=== PATIENT | male | born 1960 | race African-American/Black ===

== ENCOUNTER 2017-01-19 14:40 | Emergency (ER) | payer BC, OTHER ==
[2017-01-19] MEDS ORDERED: Sodium Chloride 0.9% 2.5 ML Syringe FLUSH PRN (14:50)
[2017-01-19] MEDS ORDERED: Sodium Chloride 0.9% 10 ML Syringe FLUSH PRN (14:50)
[2017-01-19] MEDS ORDERED: Aspirin 81 MG Tab.Chew PO ONE (14:51)
--- NOTE | 2017-01-19 14:53 | EDM.PDOC ---
ED HPI GENERAL MEDICAL PROBLEM - General Stated Complaint: CHEST PAIN Time Seen by Provider: 01/19/17 14:48 - History of Present Illness INITIAL COMMENTS - FREE TEXT/NARRATIVE: HISTORY AND PHYSICAL: History of present illness: Patient is 56-year-old black male with history of hypertension but denies history of prior SC stroke patient is nonsmoker and presents with a concern of right-sided chest pain was sharp and lasts approximately 10 minutes he denies associated shortness of breath diaphoresis nausea vomiting palpitations no fever chills no trauma no other complaints Review of systems: As per history of present illness and below otherwise all systems reviewed and negative. Past medical history: As per history of present illness and as reviewed below otherwise noncontributory. Surgical history: As per history of present illness and as reviewed below otherwise noncontributory. Social history: No reported history of drug or alcohol abuse. Family history: As per history of present illness and as reviewed below otherwise noncontributory. Physical exam: HEENT: Atraumatic, normocephalic, pupils reactive, negative for conjunctival pallor or scleral icterus, mucous membranes moist, throat clear, neck supple, nontender, trachea midline. Lungs: Clear to auscultation, breath sounds equal bilaterally, chest nontender. Heart: S1S2, regular, negative for clicks, rubs, or JVD. Abdomen: Soft, nondistended, nontender. Negative for masses or hepatosplenomegaly. Negative for costovertebral tenderness. Pelvis: Stable nontender. Genitourinary: Deferred. Rectal: Deferred. Extremities: Atraumatic, negative for cords or calf pain. Neurovascular unremarkable. Neuro: Awake, alert, oriented. Cranial nerves II through XII unremarkable. Cerebellum unremarkable. Motor and sensory unremarkable throughout. Exam nonfocal. Diagnostics: CBC CMP PT/INR troponin d-dimer chest x-ray EKG Therapeutics: IV O2 monitor aspirin 324 mg by mouth Impression: #1 right-sided chest pain Definitive disposition and diagnosis as appropriate pending reevaluation and review of above. - Related Data Allergies Allergy/AdvReac Type Severity Reaction Status Date / Time No Known Allergies Allergy Verified 09/24/13 15:51 Home Meds: Home Meds Albuterol [Ventolin HFA] 2 puff INH BID 09/24/13 [History] Budesonide/Formoterol [Symbicort 160-4.5 MCG] 1 puff INH BID 09/24/13 [History] Doxylamine Succinate [Sleep Aid] 25 mg PO 09/24/13 [History] Naproxen Sodium [Aleve] 220 mg PO 09/24/13 [History] Sulfamethoxazole/Trimethoprim [Bactrim Ds Tablet] 1 each PO 09/24/13 [History] risperiDONE 1 mg PO 09/24/13 [History] ED ROS GENERAL - Review of Systems Review Of Systems: ROS reveals no pertinent complaints other than HPI. ED EXAM, GENERAL - Physical Exam Exam: See Below (See dictation) Course - Vital Signs Last Recorded V/S: Last Vital Signs Temp 36.2 C 01/19/17 14:57 Pulse 76 01/19/17 16:06 Resp 16 01/19/17 16:06 BP 114/86 01/19/17 16:06 Pulse Ox 96 01/19/17 16:06 - Orders/Labs/Meds Orders: Active Orders 24 hr Category Date Time Status Cardiac Monitoring [RC] . DIRECTED Care 01/19/17 14:50 Active EKG Documentation Completion [RC] STAT Care 01/19/17 14:50 Active Oxygen Therapy, ED [RC] ASDIRECTED Care 01/19/17 14:50 Active Pulse Oximetry [RC] ASDIRECTED Care 01/19/17 14:50 Active Labs: Laboratory Tests 01/19/17 01/19/17 01/19/17 Range/Units 15:00 15:00 15:00 WBC 7.31 (4.0-11.0) K/uL RBC 4.90 (4.50-5.90) M/uL Hgb 14.3 (13.0-17.0) g/dL Hct 42.0 (38.0-50.0) % MCV 85.7 (80.0-98.0) fL MCH 29.2 (27.0-32.0) pg MCHC 34.0 (31.0-37.0) g/dL RDW Std Deviation 41.6 (28.0-62.0) fl RDW Coeff of Louis 13 (11.0-15.0) % Plt Count 217 (150-400) K/uL MPV 9.30 (7.40-12.00) fL Neut % (Auto) 70.2 (48.0-80.0) % Lymph % (Auto) 23.5 (16.0-40.0) % [place] % (Auto) 5.2 (0.0-15.0) % Eos % (Auto) 0.7 (0.0-7.0) % Baso % (Auto) 0.4 (0.0-1.5) % Neut # (Auto) 5.1 (1.4-5.7) K/uL Lymph # (Auto) 1.7 (0.6-2.4) K/uL [place] # (Auto) 0.4 (0.0-0.8) K/uL Eos # (Auto) 0.1 (0.0-0.7) K/uL Baso # (Auto) 0.0 (0.0-0.1) K/uL Nucleated RBC % 0.0 /100WBC Nucleated RBCs # 0 K/uL INR 1.08 (0.86-1.11) D-Dimer, Quantitative 0.39 (0.0-0.52) mg/LFEU Sodium 137 (136-146) mmol/L Potassium 4.0 (3.5-5.1) mmol/L Chloride 104 (98-110) mmol/L Carbon Dioxide 24 (21-31) mmol/L BUN 14 (6.0-23.0) mg/dL Creatinine 1.2 (0.6-1.5) mg/dL Est Cr Clr Drug Dosing TNP Estimated GFR (MDRD) > 60.0 ml/min Glucose 135 H (60-110) mg/dL Calcium 9.7 (8.8-10.8) mg/dL Total Bilirubin 0.8 (0.1-1.5) mg/dL AST 18 (5-40) IU/L ALT 22 (8-54) IU/L Alkaline Phosphatase 81 (40-150) Troponin I (0.0-0.29) NG/ML Total Protein 7.1 (6.0-8.0) g/dL Albumin 4.3 (3.5-5.0) g/dL Globulin 2.8 (2.0-3.5) g/dL Albumin/Globulin Ratio 1.5 (1.3-2.8) 01/19/17 Range/Units 15:00 WBC (4.0-11.0) K/uL RBC (4.50-5.90) M/uL Hgb (13.0-17.0) g/dL Hct (38.0-50.0) % MCV (80.0-98.0) fL MCH (27.0-32.0) pg MCHC (31.0-37.0) g/dL RDW Std Deviation (28.0-62.0) fl RDW Coeff of Louis (11.0-15.0) % Plt Count (150-400) K/uL MPV (7.40-12.00) fL Neut % (Auto) (48.0-80.0) % Lymph % (Auto) (16.0-40.0) % [place] % (Auto) (0.0-15.0) % Eos % (Auto) (0.0-7.0) % Baso % (Auto) (0.0-1.5) % Neut # (Auto) (1.4-5.7) K/uL Lymph # (Auto) (0.6-2.4) K/uL [place] # (Auto) (0.0-0.8) K/uL Eos # (Auto) (0.0-0.7) K/uL Baso # (Auto) (0.0-0.1) K/uL Nucleated RBC % /100WBC Nucleated RBCs # K/uL INR (0.86-1.11) D-Dimer, Quantitative (0.0-0.52) mg/LFEU Sodium (136-146) mmol/L Potassium (3.5-5.1) mmol/L Chloride (98-110) mmol/L Carbon Dioxide (21-31) mmol/L BUN (6.0-23.0) mg/dL Creatinine (0.6-1.5) mg/dL Est Cr Clr Drug Dosing Estimated GFR (MDRD) ml/min Glucose (60-110) mg/dL Calcium (8.8-10.8) mg/dL Total Bilirubin (0.1-1.5) mg/dL AST (5-40) IU/L ALT (8-54) IU/L Alkaline Phosphatase (40-150) Troponin I < 0.10 (0.0-0.29) NG/ML Total Protein (6.0-8.0) g/dL Albumin (3.5-5.0) g/dL Globulin (2.0-3.5) g/dL Albumin/Globulin Ratio (1.3-2.8) Meds: Medications Discontinued Medications Generic Name Dose Route Start Last Admin Trade Name Ajq PRN Reason Stop Dose Admin Aspirin 324 mg 01/19/17 14:51 01/19/17 15:16 Aspirin PO 01/19/17 14:52 243 mg ONETIME ONE Administration Sodium Chloride 10 ml 01/19/17 14:50 Saline Flush FLUSH ASDIRECTED PRN Keep Vein Open Sodium Chloride 2.5 ml 01/19/17 14:50 Saline Flush FLUSH ASDIRECTED PRN Keep Vein Open Departure - Departure Time of Disposition: 16:13 Disposition: Home, Self-Care 01 Condition: Good Clinical Impression: Atypical chest pain - Discharge Information Additional Instructions: The following information is given to patients seen in the emergency department who are being discharged to home. This information is to outline your options for follow-up care. We provide all patients seen in our emergency department with a follow-up referral. The need for follow-up, as well as the timing and circumstances, are variable depending upon the specifics of your emergency department visit. If you don't have a primary care physician on staff, we will provide you with a referral. We always advise you to contact your personal physician following an emergency department visit to inform them of the circumstance of the visit and for follow-up with them and/or the need for any referrals to a consulting specialist. The emergency department will also refer you to a specialist when appropriate. This referral assures that you have the opportunity for followup care with a specialist. All of these measure are taken in an effort to provide you with optimal care, which includes your followup. Under all circumstances we always encourage you to contact your private physician who remains a resource for coordinating your care. When calling for followup care, please make the office aware that this follow-up is from your recent emergency room visit. If for any reason you are refused follow-up, please contact the [facility] emergency department at and asked to speak to the emergency department charge nurse. [facility] [address] [place] [id number] Follow-up primary medical doctor in our clinic above as discussed return as needed as discussed - My Orders Last 24 Hours: My Active Orders 01/19/17 14:50 Cardiac Monitoring [RC] . DIRECTED EKG Documentation Completion [RC] STAT Oxygen Therapy, ED [RC] ASDIRECTED Pulse Oximetry [RC] ASDIRECTED - Assessment/Plan Last 24 Hours: My Active Orders 01/19/17 14:50 Cardiac Monitoring [RC] . DIRECTED EKG Documentation Completion [RC] STAT Oxygen Therapy, ED [RC] ASDIRECTED Pulse Oximetry [RC] ASDIRECTED
--- NOTE | 2017-01-19 15:24 | CR ---
EXAMINATION: Portable chest radiograph. HISTORY: Shortness of breath. FINDINGS: The trachea is midline. The cardiomediastinal silhouette is within normal limits. No pulmonary infil trates, effusions or pneumothorax. Osseous structures appear unremarkable. IMPRESSION: No acute cardiopulmonary process.
[2017-01-19 15:41] LABS: CHLORIDE,CL 104 mmol/L (98-110); SODIUM,NA 137 mmol/L (136-146)
== END 2017-01-19 16:28 | disposition home or self-care (01) ==
LOC: MW.ED 14:40
DX: R07.89 Other chest pain (principal)
CPT/HCPCS: 36415; 71010; 80053; 84484; 85025; 85379; 85610; 93005; 99285; A9270; 99283

== ENCOUNTER 2018-07-09 23:06 | Emergency (ER) | payer BC ==
--- NOTE | 2018-07-09 23:28 | EDM.PDOC ---
ED HPI GENERAL MEDICAL PROBLEM - General Chief Complaint: Abdominal Pain Stated Complaint: PT HAS STOMACH PAINS Time Seen by Provider: 07/09/18 23:19 - History of Present Illness INITIAL COMMENTS - FREE TEXT/NARRATIVE: HISTORY AND PHYSICAL: History of present illness: The patient is a 58-year-old male who has a history of Hodgkin's lymphoma for which he is being seen at the [facility] and is on chemotherapy and is slated to continue chemotherapy from September and presents with constipation and no bowel movement for 4 days. The patient says he has never had any abdominal surgical history and has no GI problems and normally does not go this long without a bowel movement. He says he has been eating normally and he has been eating a lot of food but he has had no nausea vomiting fever chills chest pain or shortness of breath. He's passing his urine without difficulty. The patient has tried [id number] preps such as milk of magnesia and mag citrate and other laxatives and says that nothing is working. He denies any specific abdominal pain. For the triage nurse the patient says that he has lower abdominal pain but he denied that to me. He has no flank pain. When asked specifically where the patient's lymphoma is mostly localized he says in his axillary areas and in his abdomen. Review of systems: As per history of present illness and below otherwise all systems reviewed and negative. Past medical history: As per history of present illness and as reviewed below otherwise noncontributory. Surgical history: As per history of present illness and as reviewed below otherwise noncontributory. Social history: No reported history of drug or alcohol abuse. Family history: As per history of present illness and as reviewed below otherwise noncontributory. Physical exam: General: Well-developed well-nourished man who is nontoxic and ambulated into the ED without distress. Vital signs are noted by me. HEENT: Atraumatic, normocephalic, negative for conjunctival pallor or scleral icterus, mucous membranes moist, throat clear, neck supple, nontender, trachea midline. Lungs: Clear to auscultation, breath sounds equal bilaterally, chest nontender. Heart: S1S2, regular rate and rhythm no overt murmurs Abdomen: Soft, nondistended, bowel sounds are slightly hypoactive and there is some mild tenderness on the right side of the abdomen in the middle without localization in the right upper or right lower quadrant, there is some diffuse lower abdominal tenderness on palpation but no rebound or guarding.. Negative for masses or hepatosplenomegaly. Negative for costovertebral tenderness. Pelvis: Stable nontender. Genitourinary: Deferred. Rectal: Deferred. Extremities: Atraumatic, negative for cords or calf pain. Neurovascular unremarkable. Neuro: Awake, alert, oriented. Cranial nerves II through XII unremarkable. Cerebellum unremarkable. Motor and sensory unremarkable throughout. Exam nonfocal. Diagnostics: CBC CMP UA abdominal x-rays Therapeutics: With the patient his x-ray findings as well as his WBC count which is elevated with a left shift. He says that after his chemotherapy they give him a patch which helps with his white cell count and that normally it would be elevated after his chemotherapy and he is not concerned. I told him that we have no recent labs to compare today's findings and his WBC count of 30.36 with a left shift is worrisome in light of his abdominal complaints. He does not have a fever and on my exam he only has minimal pain but never complained of pain. He is not having vomiting. I offered the patient a CAT scan to further delineate if there is something connecting his constipation with his WBC count and he is declining. He is aware of my concerns that his lymphoma was initially diagnosed with abdominal involvement and this can be worrisome with the complaints he has and the white cell count. He still declines the CAT scan. He said he would prefer to go see his provider in [place]. I will give him advice on trying to help evacuate the colon. I told him that an enema would probably not be useful at this time because on the x-rays there is not much stool in the rectal vault and he now tells me he did try an enema as well as home and to get some small output. I will advise [id number] meds that he can try such as MiraLAX with Colace and reasons to return to the ED Impression: Constipation with history of Hodgkin's lymphoma on chemotherapy Definitive disposition and diagnosis as appropriate pending reevaluation and review of above. lower abd Pain Score (Numeric/FACES): 6 - Related Data Allergies Allergy/AdvReac Type Severity Reaction Status Date / Time No Known Allergies Allergy Verified 07/09/18 23:20 Home Meds: Home Meds Albuterol [Ventolin HFA] 2 puff INH BID PRN 09/24/13 [History] Budesonide/Formoterol [Symbicort 160-4.5 MCG] 1 puff INH ASDIRECTED PRN [History] Lurasidone HCl [Latuda] 20 mg PO DAILY 04/17/18 [History] atorvaSTATin [Lipitor] 10 mg PO DAILY 04/17/18 [History] cloNIDine [Catapres] 0.1 mg PO DAILY 04/17/18 [History] traZODone HCl [Trazodone HCl] 100 mg PO ASDIRECTED 04/18/18 [History] Hydrocodone/Acetaminophen [Hydrocodon-Acetaminophen 5-325] 1 each PO Q6HR PRN # 15 tablet 04/19/18 [Rx] Past Medical History - Past Health History Medical/Surgical History: Denies Medical/Surgical History Cardiovascular History: Reports: High Cholesterol Respiratory History: Reports: Asthma Musculoskeletal History: Reports: Fracture Other Musculoskeletal History: hx fx rt leg Psychiatric History: Reports: Anxiety, Depression, Schizophrenia Oncologic (Cancer) History: Reports: Hodgkin's Lymphoma - Past Surgical History Head Surgeries/Procedures: Reports: None Musculoskeletal Surgical History: Reports: Other (See Below) Other Musculoskeletal Surgeries/Procedures:: ORIF rt. lower femur fx. Social & Family History - Family History Family Medical History: Noncontributory Other Dermatologic Family History: Lupus - Tobacco Use Smoking Status *Q: Never Smoker Second Hand Smoke Exposure: No - Caffeine Use Caffeine Use: Reports: Energy Drinks - Recreational Drug Use Recreational Drug Use: Yes Drug Use in Last 12 Months: No Recreational Drug Type: Reports: Marijuana/Hashish ED ROS GENERAL - Review of Systems Review Of Systems: ROS reveals no pertinent complaints other than HPI. ED EXAM, GENERAL - Physical Exam Exam: See Below (See dictation) Course - Vital Signs Last Recorded V/S: Last Vital Signs Temp 36.7 C 07/09/18 23:17 Pulse 101 H 07/09/18 23:17 Resp 16 07/09/18 23:17 BP 136/93 H 07/09/18 23:17 Pulse Ox 98 07/09/18 23:17 - Orders/Labs/Meds Labs: Laboratory Tests 07/09/18 07/09/18 07/09/18 Range/Units 23:30 23:41 23:41 WBC 30.36 H (4.0-11.0) K/uL RBC 4.44 L (4.50-5.90) M/uL Hgb 12.4 L (13.0-17.0) g/dL Hct 37.4 L (38.0-50.0) % MCV 84.2 (80.0-98.0) fL MCH 27.9 (27.0-32.0) pg MCHC 33.2 (31.0-37.0) g/dL RDW Std Deviation 66.3 H (28.0-62.0) fl RDW Coeff of Louis 22 H (11.0-15.0) % Plt Count 341 (150-400) K/uL MPV 8.70 (7.40-12.00) fL Add Manual Diff YES Neutrophils % (Manual) 78 (48.0-80.0) % Band Neutrophils % 8 % Lymphocytes % (Manual) 11 L (16.0-40.0) % Monocytes % (Manual) 2 (0.0-15.0) % Basophils % (Manual) 1 (0.0-1.5) % Nucleated RBC % 0.3 /100WBC Absolute Seg Neuts 23.7 H (1.4-5.7) Band Neutrophils # 2.4 Lymphocytes # (Manual) 3.3 H (0.6-2.4) Monocytes # (Manual) 0.6 (0.0-0.8) Basophils # (Manual) 0.3 H (0.0-0.1) Nucleated RBCs # 0 K/uL Sodium 137 (136-148) mmol/L Potassium 4.0 (3.5-5.1) mmol/L Chloride 99 (98-107) mmol/L Carbon Dioxide 29.4 (21.0-32.0) mmol/L BUN 12 (7.0-18.0) mg/dL Creatinine 1.3 (0.8-1.3) mg/dL Est Cr Clr Drug Dosing 57.26 mL/min Estimated GFR (MDRD) > 60.0 ml/min Glucose 110 H (74-106) mg/dL Calcium 9.5 (8.5-10.1) mg/dL Total Bilirubin 0.2 (0.2-1.0) mg/dL AST 17 (15-37) IU/L ALT 18 (14-63) IU/L Alkaline Phosphatase 150 H (46-116) U/L Total Protein 7.1 (6.4-8.2) g/dL Albumin 3.9 (3.4-5.0) g/dL Globulin 3.2 (2.6-4.0) g/dL Albumin/Globulin Ratio 1.2 (0.9-1.6) Urine Color YELLOW Urine Appearance CLEAR Urine pH 7.0 (5.0-8.0) Ur Specific Addis 1.020 (1.001-1.035) Urine Protein NEGATIVE (NEGATIVE) mg/dL Urine Glucose (UA) NEGATIVE (NEGATIVE) mg/dL Urine Ketones TRACE H (NEGATIVE) mg/dL Urine Occult Blood NEGATIVE (NEGATIVE) Urine Nitrite NEGATIVE (NEGATIVE) Urine Bilirubin NEGATIVE (NEGATIVE) Urine Urobilinogen 0.2 (<2.0) EU/dL Ur Leukocyte Esterase NEGATIVE (NEGATIVE) Departure - Departure Time of Disposition: 00:53 Disposition: Home, Self-Care 01 Condition: Good Clinical Impression: Constipation Qualifiers: Constipation type: unspecified constipation type Qualified Code(s): K59.00 - Constipation, unspecified Hodgkins lymphoma Qualifiers: Hodgkin lymphoma type: unspecified type Lymphoma site: unspecified region Qualified Code(s): C81.90 - Hodgkin lymphoma, unspecified, unspecified site - Discharge Information Referrals: PCP,None [Primary Care Provider] - Forms: ED Department Discharge Additional Instructions: The following information is given to patients seen in the emergency department who are being discharged to home. This information is to outline your options for follow-up care. We provide all patients seen in our emergency department with a follow-up referral. The need for follow-up, as well as the timing and circumstances, are variable depending upon the specifics of your emergency department visit. If you don't have a primary care physician on staff, we will provide you with a referral. We always advise you to contact your personal physician following an emergency department visit to inform them of the circumstance of the visit and for follow-up with them and/or the need for any referrals to a consulting specialist. The emergency department will also refer you to a specialist when appropriate. This referral assures that you have the opportunity for followup care with a specialist. All of these measure are taken in an effort to provide you with optimal care, which includes your followup. Under all circumstances we always encourage you to contact your private physician who remains a resource for coordinating your care. When calling for followup care, please make the office aware that this follow-up is from your recent emergency room visit. If for any reason you are refused follow-up, please contact the [facility] emergency department at and ask to speak to the emergency department charge nurse. [facility] Primary care- Internal Medicine and Family [address] [address] Please contact your provider and your oncologist first thing in the morning to discuss with them your constipation and today's test findings. Please continue to monitor your symptoms and return to ER as needed and as discussed and for further care as you choose going forward. For your constipation you can use over -the-counter MiraLAX 1 heaping tablespoon twice a day for 2-3 days and then 1 heaping teaspoon once a day. Also continue to take [id number] Colace twice a day to help keep the stool moving and push hydration.
[2018-07-10 00:03] LABS: CHLORIDE,CL 99 mmol/L (98-107); SODIUM,NA 137 mmol/L (136-148)
--- NOTE | 2018-07-10 00:52 | CR ---
Indication: Abdominal pain. Technique: AP supine and upright views of the abdomen and pelvis were obtained. Comparison: None Findings: The bowel gas pattern is nonobstructive. No free air is identified. No pathologic calcifications are seen. Impression: Nonobstructed bowel-gas pattern. No free air. Dictated by Marianela Wayne MD @ Jul 10 2018 12:49AM Signed by Dr. Marianela Wayne @ Jul 10 2018 12:50AM
== END 2018-07-10 01:02 | disposition home or self-care (01) ==
LOC: MW.ED 23:06
DX: K59.00 Constipation, unspecified (principal); C81.90 Hodgkin lymphoma, unspecified, unspecified site; E78.00 Pure hypercholesterolemia, unspecified; F41.9 Anxiety disorder, unspecified; F32.9 Major depressive disorder, single episode, unspecified; Z79.899 Other long term (current) drug therapy
CPT/HCPCS: 36415; 74019; 74019-26; 80053; 81003; 85025; 99283

== ENCOUNTER 2019-01-14 11:29 | Emergency (ER) | payer BC ==
[2019-01-14] MEDS ORDERED: methylPREDNISolone Sodium Succinate 125 MG/2 ML SDV IM ONE (12:03)
--- NOTE | 2019-01-14 12:03 | EDM.PDOC ---
ED HPI GENERAL MEDICAL PROBLEM - General Chief Complaint: Skin Complaint Stated Complaint: SORE THROAT Time Seen by Provider: 01/14/19 11:53 Source of Information: Reports: Patient History Limitations: Reports: No Limitations - History of Present Illness INITIAL COMMENTS - FREE TEXT/NARRATIVE: HISTORY AND PHYSICAL: History of present illness: Patient is a 58-year-old male presents to the ED with complaint of rash. He states the rash started 4 days ago and has progressively gotten worse. Rash is all over his body, states it is itchy. He reports his mouth feels swollen and mcmillan when he eats. states he had a fever the past couple of days around 101F. Past medical history significant for Hodgkin's lymphoma. Finished radiation therapy about 6 weeks ago. Denies nausea, vomiting, diarrhea, abdominal pain, headache, cough. No new medications other than restarting statin about 6 weeks ago. Patient has a follow up with his oncologist tomorrow ( 01/15/19). Review of systems: As per history of present illness and below otherwise all systems reviewed and negative. Past medical history: As per history of present illness and as reviewed below otherwise noncontributory. Surgical history: As per history of present illness and as reviewed below otherwise noncontributory. Social history: No reported history of drug or alcohol abuse. Family history: As per history of present illness and as reviewed below otherwise noncontributory. Physical exam: General: Patient sitting comfortably in no acute distress and nontoxic appearing HEENT: Multiple aphthous ulcerations in the mouth. Atraumatic, normocephalic, pupils reactive, negative for conjunctival pallor or scleral icterus or injection, mucous membranes moist, throat clear, neck supple, nontender, trachea midline. No meningeal signs. Lungs: Clear to auscultation, breath sounds equal bilaterally, chest nontender. Heart: S1S2, regular, negative for clicks, rubs, or overt murmur. Abdomen: Soft, nondistended, nontender. Negative for masses or hepatosplenomegaly. Negative for costovertebral tenderness. No rigidity, rebound , guarding. Pelvis: Stable nontender. Genitourinary: Deferred. Rectal: Deferred. Skin: diffuse pink papules on head, chest, back, abdomen, arms, and legs including palms of the hands. No bullae, target lesions, skin sloughing Extremities: Atraumatic, negative for cords or calf pain. Neurovascular unremarkable. Neuro: Awake, alert, oriented. Cranial nerves II through XII unremarkable. Cerebellum unremarkable. Motor and sensory unremarkable throughout. Exam nonfocal. Notes: Diagnostics: CBC, CMP Therapeutics: solumedrol 125mg IM Prescriptions: Magic mouthwash Medrol dosepak Impression: Rash Plan: take medication as instructed Follow-up with primary care provider Return to ED as needed as discussed Definitive disposition and diagnosis as appropriate pending reevaluation and review of above. - Related Data Allergies Allergy/AdvReac Type Severity Reaction Status Date / Time No Known Allergies Allergy Verified 01/14/19 11:41 Home Meds: Home Meds Budesonide/Formoterol [Symbicort 160-4.5 MCG] 1 puff INH ASDIRECTED PRN [History] Lurasidone HCl [Latuda] 20 mg PO DAILY 04/17/18 [History] atorvaSTATin [Lipitor] 10 mg PO DAILY 04/17/18 [History] cloNIDine [Catapres] 0.1 mg PO DAILY 04/17/18 [History] traZODone HCl [Trazodone HCl] 100 mg PO ASDIRECTED 04/18/18 [History] Aspirin 81 mg PO DAILY 01/14/19 [History] Diphenhyd/Lidocaine/Nystatin [First-Bxn Mouthwash] 10 ml MM QID #1 susp.recon [Rx] methylPREDNISolone [Medrol] 4 mg PO ASDIRECTED #1 tab.ds.pk 01/14/19 [Rx] Past Medical History - Past Health History Medical/Surgical History: Denies Medical/Surgical History Cardiovascular History: Reports: High Cholesterol Respiratory History: Reports: Asthma Musculoskeletal History: Reports: Fracture Other Musculoskeletal History: hx fx rt leg Psychiatric History: Reports: Depression Oncologic (Cancer) History: Reports: Hodgkin's Lymphoma - Past Surgical History Head Surgeries/Procedures: Reports: None Musculoskeletal Surgical History: Reports: Other (See Below) Other Musculoskeletal Surgeries/Procedures:: ORIF rt. lower femur fx. Social & Family History - Family History Family Medical History: Noncontributory Other Dermatologic Family History: Lupus - Tobacco Use Smoking Status *Q: Unknown Ever Smoked - Caffeine Use Caffeine Use: Reports: Energy Drinks - Recreational Drug Use Recreational Drug Use: Yes Drug Use in Last 12 Months: Yes Recreational Drug Type: Reports: Marijuana/Hashish Recreational Drug Use Frequency: Weekly ED ROS GENERAL - Review of Systems Review Of Systems: ROS reveals no pertinent complaints other than HPI. ED EXAM, SKIN/RASH Exam: See Below (see dictation) Course - Vital Signs Last Recorded V/S: Last Vital Signs Temp 97.2 F 01/14/19 13:04 Pulse 90 01/14/19 13:04 Resp 18 01/14/19 13:04 BP 115/94 H 01/14/19 13:04 Pulse Ox 97 01/14/19 13:04 - Orders/Labs/Meds Labs: Laboratory Tests 01/14/19 01/14/19 Range/Units 12:09 12:09 WBC 5.23 (4.0-11.0) K/uL RBC 5.43 (4.50-5.90) M/uL Hgb 15.6 (13.0-17.0) g/dL Hct 46.2 (38.0-50.0) % MCV 85.1 (80.0-98.0) fL MCH 28.7 (27.0-32.0) pg MCHC 33.8 (31.0-37.0) g/dL RDW Std Deviation 48.4 (28.0-62.0) fl RDW Coeff of Louis 16 H (11.0-15.0) % Plt Count 150 (150-400) K/uL MPV 9.10 (7.40-12.00) fL Neut % (Auto) 59.1 (48.0-80.0) % Lymph % (Auto) 23.3 (16.0-40.0) % [place] % (Auto) 3.8 (0.0-15.0) % Eos % (Auto) 13.2 H (0.0-7.0) % Baso % (Auto) 0.6 (0.0-1.5) % Neut # (Auto) 3.1 (1.4-5.7) K/uL Lymph # (Auto) 1.2 (0.6-2.4) K/uL [place] # (Auto) 0.2 (0.0-0.8) K/uL Eos # (Auto) 0.7 (0.0-0.7) K/uL Baso # (Auto) 0.0 (0.0-0.1) K/uL Nucleated RBC % 0.0 /100WBC Nucleated RBCs # 0 K/uL Sodium 139 (136-148) mmol/L Potassium 4.3 (3.5-5.1) mmol/L Chloride 103 (98-107) mmol/L Carbon Dioxide 26.1 (21.0-32.0) mmol/L BUN 12 (7.0-18.0) mg/dL Creatinine 1.2 (0.8-1.3) mg/dL Est Cr Clr Drug Dosing 61.44 mL/min Estimated GFR (MDRD) > 60.0 ml/min Glucose 114 H (74-106) mg/dL Calcium 9.4 (8.5-10.1) mg/dL Total Bilirubin 0.7 (0.2-1.0) mg/dL AST 26 (15-37) IU/L ALT 27 (14-63) IU/L Alkaline Phosphatase 142 H (46-116) U/L Total Protein 7.4 (6.4-8.2) g/dL Albumin 3.5 (3.4-5.0) g/dL Globulin 3.9 (2.6-4.0) g/dL Albumin/Globulin Ratio 0.9 (0.9-1.6) Meds: Medications Discontinued Medications Generic Name Dose Route Start Last Admin Trade Name Freq PRN Reason Stop Dose Admin Methylprednisolone Sodium Succinate 125 mg 01/14/19 12:03 01/14/19 12:13 Solu-Medrol IM 01/14/19 12:04 125 mg ONETIME ONE Administration Departure - Departure Time of Disposition: 12:49 Disposition: Home, Self-Care 01 Condition: Good Clinical Impression: Rash, Aphthous ulcer - Discharge Information Prescriptions: Diphenhyd/Lidocaine/Nystatin [First-Bxn Mouthwash] 10 ml MM QID #1 susp.recon methylPREDNISolone [Medrol] 4 mg PO ASDIRECTED #1 tab.ds.pk Instructions: Rash, Oral Ulcers Referrals: PCP,Unknown [Primary Care Provider] - Forms: ED Department Discharge Additional Instructions: The following information is given to patients seen in the emergency department who are being discharged to home. This information is to outline your options for follow-up care. We provide all patients seen in our emergency department with a follow-up referral. The need for follow-up, as well as the timing and circumstances, are variable depending upon the specifics of your emergency department visit. If you don't have a primary care physician on staff, we will provide you with a referral. We always advise you to contact your personal physician following an emergency department visit to inform them of the circumstance of the visit and for follow-up with them and/or the need for any referrals to a consulting specialist. The emergency department will also refer you to a specialist when appropriate. This referral assures that you have the opportunity for follow-up care with a specialist. All of these measure are taken in an effort to provide you with optimal care, which includes your follow-up. Under all circumstances we always encourage you to contact your private physician who remains a resource for coordinating your care. When calling for follow-up care, please make the office aware that this follow-up is from your recent emergency room visit. If for any reason you are refused follow-up, please contact the [facility] Emergency Department at and asked to speak to the emergency department charge nurse. [facility] [address] [place] [id number] [address] take medication as instructed Follow-up with primary care provider Return to ED as needed as discussed
[2019-01-14 12:38] LABS: CHLORIDE,CL 103 mmol/L (98-107); SODIUM,NA 139 mmol/L (136-148)
== END 2019-01-14 13:04 | disposition home or self-care (01) ==
LOC: MW.ED 11:29
DX: K12.0 Recurrent oral aphthae (principal); E78.00 Pure hypercholesterolemia, unspecified; F32.9 Major depressive disorder, single episode, unspecified; J45.909 Unspecified asthma, uncomplicated; Z79.82 Long term (current) use of aspirin; Z79.899 Other long term (current) drug therapy
CPT/HCPCS: 36415; 80053; 85025; 96372; 99283; J2930

== ENCOUNTER 2023-09-24 02:30 | Emergency (ER) | payer BC | END 2023-09-24 02:44 | LOC: MW.ED 02:30 | DX: I10 Essential (primary) hypertension (principal); E78.00 Pure hypercholesterolemia, unspecified; Z79.82 Long term (current) use of aspirin; Z79.899 Other long term (current) drug therapy; Z75.8 Other problems related to medical facilities and other health care | CPT/HCPCS: 99283 ==